=== PATIENT | male | born 1980 | race Caucasian/White ===

== ENCOUNTER → 2018-01-31 | Outpatient (CLI) | payer OTHER | LOC: M OUTALCOH 07:50 | DX: Z13.9 Encounter for screening, unspecified (principal); F10.10 Alcohol abuse, uncomplicated ==

== ENCOUNTER → 2018-02-05 | Outpatient (REF) ==
[2018-02-07 14:13] LABS: QUANTIFERON GOLD TB Negative (Negative); TB Test (QFT) Antigen 0.04 IU/mL (.); TB Test (QFT) Mitogen >10.00 IU/mL (.); TB Test (QFT) Nil 0.04 IU/mL (.)
== END ==
LOC: M LAB 12:20
DX: Z02.1 Encounter for pre-employment examination (principal)

== ENCOUNTER → 2018-02-08 | Outpatient (REF) ==
[2018-02-09 11:12] LABS: RUBELLA IgG QUALITATIVE IMMUNE (IMMUNE)
[2018-02-09 11:24] LABS: HEPATITIS B SURFACE ANTIBODY NEGATIVE (POSITIVE)
== END ==
LOC: M LAB 14:13
DX: Z00.00 Encounter for general adult medical examination without abnormal findings (principal)

== ENCOUNTER 2018-02-09 11:49 | Outpatient (RCR) | payer OTHER | END 2018-03-05 | LOC: M OUTALCOH 11:49 | DX: Z03.89 Encounter for observation for other suspected diseases and conditions ruled out (principal) ==

== ENCOUNTER 2018-05-20 23:14 | Emergency (ER) | payer OTHER | END 2018-05-21 01:44 | disposition left against medical advice (07) | LOC: M ED 23:14 | DX: S09.92XA Unspecified injury of nose, initial encounter (principal); X58.XXXA Exposure to other specified factors, initial encounter; Y92.9 Unspecified place or not applicable; Y93.9 Activity, unspecified; Y99.9 Unspecified external cause status; Z53.21 Procedure and treatment not carried out due to patient leaving prior to being seen by health care provider ==

== ENCOUNTER → 2021-11-11 | Outpatient (REF) ==
[~2021-11-11] MED LIST: AMLO1TAB25; LISI40TA4
== END ==
LOC: M LABSMTC 12:12
PROVIDERS: ATTEND Pediatrics
DX: Z20.822 Contact with and (suspected) exposure to COVID-19 (principal)

== ENCOUNTER → 2022-12-23 | Outpatient (CLI) | payer OTHER | LOC: M RAD 14:39 | PROVIDERS: ATTEND Internal Medicine | DX: I10 Essential (primary) hypertension (principal); R80.9 Proteinuria, unspecified; R60.0 Localized edema ==

== ENCOUNTER → 2025-02-26 | Outpatient (CLI) | payer OTHER | LOC: M RAD 13:31 | PROVIDERS: ATTEND Physician Assistant | DX: M25.572 Pain in left ankle and joints of left foot (principal) ==